=== PATIENT | male | born 1990 | race African-American/Black ===

== ENCOUNTER 2017-01-17 13:28 | Emergency (ER) | payer OTHER ==
[2017-01-17 13:34] VITALS: BP 101/66; PULSE 78; TEMP 98.7; BMI 28.5
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
== END 2017-01-17 15:45 | disposition home or self-care (01) ==
LOC: FER 13:28
DX: S00.83XA Contusion of other part of head, initial encounter (principal); W21.05XA Struck by basketball, initial encounter; Y93.67 Activity, basketball; Y92.219 Unspecified school as the place of occurrence of the external cause; F79 Unspecified intellectual disabilities
CPT/HCPCS: 70160-TC; 99282-25

== ENCOUNTER 2017-11-29 15:38 | Emergency (ER) | payer OTHER ==
[2017-11-29 16:01] VITALS: BP 112/59; PULSE 67; TEMP 98.4; BMI 30.1
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
== END 2017-11-29 17:22 | disposition home or self-care (01) ==
LOC: FER 15:38
DX: Z04.1 Encounter for examination and observation following transport accident (principal); V57.6XXA Passenger in pick-up truck or van injured in collision with fixed or stationary object in traffic accident, initial encounter; Y93.89 Activity, other specified; Y92.412 Parkway as the place of occurrence of the external cause; F99 Mental disorder, not otherwise specified; E03.9 Hypothyroidism, unspecified; F79 Unspecified intellectual disabilities; E10.9 Type 1 diabetes mellitus without complications
CPT/HCPCS: 99281-25

== ENCOUNTER 2017-12-21 16:40 | Emergency (ER) | payer OTHER ==
[2017-12-21 16:57] VITALS: BP 116/64; PULSE 80; TEMP 97.8; BMI 30.2
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
== END 2017-12-21 17:42 | disposition home or self-care (01) ==
LOC: JERFT 16:40
DX: S21.152A Open bite of left front wall of thorax without penetration into thoracic cavity, initial encounter (principal); S00.81XA Abrasion of other part of head, initial encounter; Y04.1XXA Assault by human bite, initial encounter; Y93.89 Activity, other specified; Y92.198 Other place in other specified residential institution as the place of occurrence of the external cause; Y99.8 Other external cause status; Y07.9 Unspecified perpetrator of maltreatment and neglect
CPT/HCPCS: 99281-25